=== PATIENT | male | born 1980 | race Caucasian/White ===

== ENCOUNTER 2019-09-30 10:44 | Emergency (ER) | payer MEDICAID, OTHER ==
[~2019-09-30] VITALS: Ht 182.9 cm; Wt 126.8 kg
[2019-09-30 10:48] VITALS: BP 140/92
== END 2019-09-30 11:20 | disposition home or self-care (01) ==
LOC: ED 11:06
DX: H01.001 Unspecified blepharitis right upper eyelid (principal); E11.9 Type 2 diabetes mellitus without complications; F17.200 Nicotine dependence, unspecified, uncomplicated
CPT/HCPCS: 99283